=== PATIENT | male | born 1970 | race Two or more races ===

== ENCOUNTER 2018-06-07 10:04 | Inpatient (IN) | payer MEDICAID ==
[~2018-06-07] VITALS: Ht 182.9 cm; Wt 106.1 kg
[2018-06-07] VITALS (12 sets, daily range): BP systolic 103–120; BP diastolic 48–60
--- NOTE | 2018-06-07 10:05 | NUR ---
ZOIE FROM [facility],BLOOD SUGAR 21,WENT EP TO 193 AFTER D10, SHORT OF BREATH , ATTACHED TO THE MONITOR , VSS , WILL CONTINUE TO MONITOR
[2018-06-07] MEDS ORDERED: BISA10SU8 RC (10:15)
[2018-06-07] MEDS ORDERED: MULT-659 PO (10:15)
[2018-06-07] MEDS ORDERED: DULO60CA45 PO (10:15)
[2018-06-07] MEDS ORDERED: HYDR-552 PO (10:15)
[2018-06-07] MEDS ORDERED: BLOO-668 IN (10:15)
[2018-06-07] MEDS ORDERED: ZINC220C8 PO (10:15)
[2018-06-07] MEDS ORDERED: ASCO500T9 PO (10:15)
[2018-06-07] MEDS ORDERED: NA P133E RC (10:15)
[2018-06-07] MEDS ORDERED: HYDR-4076 PO (10:15)
[2018-06-07] MEDS ORDERED: ACET-868 PO (10:15)
[2018-06-07] MEDS ORDERED: INSU100V7 SQ (10:15)
[2018-06-07] MEDS ORDERED: MAGN400O6 PO (10:15)
[2018-06-07] MEDS ORDERED: VANC1.5P9 IV (10:16)
--- NOTE | 2018-06-07 10:38 | NUR ---
CALLED FOR ICU BED
--- NOTE | 2018-06-07 10:46 | NUR ---
GOT ICU BED 255 ROQUE IS THE NURSE
[2018-06-07 10:47] LABS: ABG BASE EXCESS -4.6 mmol/L; ABG OXYGEN SATURATION 96.1 % (92.0-98.5); ABG PCO2 32.1 mmHg (35.0-45.0); ABG PH 7.397 (7.350-7.450); ABG PO2 83.9 mmHg (75.0-100.0); AaDO2 77.9 mmHg; MetHb 0.4 % (0.0-1.5); O2Hb 94.8 % (94.0-97.0); SITE, ABG Left Radial; VENT MODE, BG Nasal Cannula
[2018-06-07] MEDS ORDERED: Sodium Chloride 154 MEQ in IV 10% DEXTROSE 1,000 ML IV ONE (11:00)
[2018-06-07] MEDS ORDERED: VANCOMYCIN 1 GM in IV D5W 250 ML IV ONE (11:00)
[2018-06-07] MEDS ORDERED: LEVOFLOXACIN 750 MG /D5W 150ML PIGGYBACK IV ONE (11:00)
[2018-06-07] MEDS ORDERED: PIPERACILLIN /TAZOBACTAM 3.375 G in IV D5W 50 ML IV ONE (11:00)
[2018-06-07 11:06] LABS: BASOPHILS # (AUTO) 0.2 /CMM (0.0-0.2); BASOPHILS % (AUTO) 3.9 % (0.0-2.0); EOSINOPHILS % (AUTO) 0.6 % (0.0-6.0); HEMATOCRIT 37 % (39-51); HEMOGLOBIN 11.3 g/dL (13.5-17.5); LYMPHOCYTES # (AUTO) 0.5 /CMM (0.8-4.8); LYMPHOCYTES % (AUTO) 7.4 % (20.0-44.0); MEAN CORPUSCULAR HEMOGLOBIN 25 PG (26.0-33.0); MEAN CORPUSCULAR HGB CONC 31 g/dl (31.0-36.0); MEAN CORPUSCULAR VOLUME 81 fL (80-96); MONOCYTES # (AUTO) 0.4 /CMM (0.1-1.30); MONOCYTES % (AUTO) 5.6 % (2.0-12.0); NEUTROPHILS # (AUTO) 5.2 /CMM (1.8-8.9); NEUTROPHILS % (AUTO) 82.5 % (43.0-81.0); PLATELET COUNT (AUTO) 148 /CMM (150-450); RDW COEFFICIENT OF VARIATION 20.4 (11.5-15.0); RED BLOOD CELL COUNT(AUTO) 4.56 MIL/uL (4.5-6.0); WHITE BLOOD COUNT (AUTO) 6.3 K/uL (4.3-11.0)
[2018-06-07 11:14] LABS: CALCIUM, SERUM 8.3 mg/dL (8.5-10.1); CREATININE 2.3 mg/dL (0.6-1.3); POTASSIUM 4.3 mmol/L (3.5-5.1)
[2018-06-07 11:17] LABS: INR 1.37 (0.85-1.15)
[2018-06-07 11:22] LABS: TROPONIN I 0.021 ng/mL (0.00-0.056)
[2018-06-07 11:25] LABS: ALBUMIN 1.9 g/dL (3.4-5.0); BILIRUBIN,DIRECT 0.4 mg/dL (0.0-0.2); BILIRUBIN,TOTAL 0.7 mg/dL (0.2-1.0)
--- NOTE | 2018-06-07 11:27 | NUR ---
RIGHT UPPER ARM PICC LINE DOUBLE LUMEN PLACED , PER PICC NURSE , OK TO USE .
[2018-06-07] MEDS ORDERED: IV NS 0.9% 1,000 ML BAG IV ONE (11:30)
--- NOTE | 2018-06-07 12:22 | NUR ---
REPORT GIVEN TO DILLON FOR CONTINUITY OF CARE , ALL QUESTIONS ANSWERED .
--- NOTE | 2018-06-07 12:58 | NUR ---
TRANSFERED PT VIA ACLS PROTOCOL TO ROOM 255 , S .
--- NOTE | 2018-06-07 13:00 | NUR ---
RN INITIAL NOTES RECEIVED PT FROM ER VIA AMBER. PT AWAKE, A/OX2-3. ON 02 SAT 3LPM VIA NM. NO RESPIRATORY DISTRESS NOTED. NO SOB NOTED. PLACED COMFORTABLY TO BED. JOHANA PICC IN PLACE. IVF INFUSING. BODY ASSESSMENT DONE, PICTURES PLACED IN THE CHART. MULTIPLE WOUNDS COVERED WITH DRY DRESSING. PT FOR WOUND CONSULT. PT COMFORTABLE. LLE ELEVATED. CALL LIGHT WITHIN REACH. DR WALDEMAR DAMON AWARE OF ADMISSION, AWAITING FOR ORDERS. WILL MONITOR
[2018-06-07] MEDS ORDERED: IV NS 0.9% 1,000 ML IV PRN (13:46)
[2018-06-07] MEDS ORDERED: ONDANSETRON HCL/PF 4 MG/2 ML VIAL IVP PRN (14:00)
[2018-06-07] MEDS ORDERED: ACETAMINOPHEN 650 MG/SUPP.RECT RC PRN (14:00)
[2018-06-07] MEDS ORDERED: FUROSEMIDE 40 MG/4 ML VIAL IV ONE (14:00)
[2018-06-07] MEDS ORDERED: FEE PK DOSING 1 MIN EA MC ONE (14:06)
--- NOTE | 2018-06-07 14:10 | NUR ---
RN NOTES SEEN AND EXAMINED BY DR PRESTON. AWARE OF PT'S H&P. REVIEWED LAB VALUES AND IMAGING STUDIES. ORDER MADE, NOTED AND CARRIED OUT. WILL MONITOR
[2018-06-07] MEDS ORDERED: INSULIN REGULAR, HUMAN 100 UNIT/ML 3 ML VIAL SQ PRN (14:30)
[2018-06-07] MEDS ORDERED: ENOXAPARIN SODIUM 40 MG/0.4 ML DISP.SYRIN SQ SCH (15:00)
--- NOTE | 2018-06-07 15:08 | NUR ---
INITIAL ECHO SHOWED EF 55-60%~, PRESENCE OF PLEURAL EFFUSION AND AORTIC VALVE VEGETATION. ADVISED ANGEL CARRANZA AND DR. HEART OF [facility]. RESULTS.
[2018-06-07] MEDS: ENOXAPARIN SODIUM 30 MG/0.3 ML DISP.SYRIN SQ SCH (15:41)
[2018-06-07] MEDS ORDERED: IV 10% DEXTROSE 1,000 ML IV PRN (16:00)
[2018-06-07] MEDS: PIPERACILLIN /TAZOBACTAM 3.375 G in IV D5W 50 ML IV SCH (17:06)
[2018-06-07] MEDS: BLOOD SUGAR DIAGNOSTIC 1 EACH STRIP IN SCH (17:12)
[2018-06-07] MEDS: DEXTROSE 50%-WATER 50 ML DISP.SYRIN IV PRN (17:13)
--- NOTE | 2018-06-07 17:30 | NUR ---
RN NOTES SEEN AND EXAMINED BY DR WALDEMAR DAMON. PT AWAKE, A/OX2-3. MD AWARE OF LAB VALUES AND CXR RESULT. MD AWARE OF LATEST BLOOD SUGAR, 55. D50 GIVEN ORDERED. PT ON D10 AT 75ML/HR. WILL RECHECK BLOOD SUGAR IN 15MINS. MD ORDERED DECREASE IVF TO 50ML/HR AND CHECK BLOOD SUGAR ORDERED, GIVE D50 IVP IF NEEDED. WILL MONITOR.
--- NOTE | 2018-06-07 18:41 | NUR ---
RN CLOSING NOTES PT REMAINS STABLE. LATEST BLOOD SUGAR, 96. TOLERATING IVF. KEPT PT CLEAN AND DRY. REPOSITIONED. CALL LIGHT WITHIN REACH. WILL ENDORSE FOR CONTINUITY OF CARE.
--- NOTE | 2018-06-07 19:00 | NUR ---
LINER MAN NOTES Received patient slightly lethargic but easily awakens,follows simple commands but very weak, all extremities extremely swollen/cellulitis ,barely able to move due to cellulitis.Not in any acute distress but breathing shallow with O2 nasal cannula @ 2 L/min.PICC line via JOHANA with Ivfluid D10 W @ 50 ml/hr.Will closely monitor finger stick/blood sugar and give prn D50 if needed as ordered.
[2018-06-07] MEDS: Z GUARD REMEDY 2 OZ OINT TP SCH (21:00)
[2018-06-07] MEDS: Z GUARD REMEDY 2 OZ OINT TP PRN ×2 (22:18→22:20)
[2018-06-08] VITALS (31 sets, daily range): BP systolic 97–112; BP diastolic 38–55
--- NOTE | 2018-06-08 | NUR ---
LICENSED THERAPIST NOTES Status unchanged,asleep most of the time but arousable,still very weak.Fs=43 ,D50wW IVP 1 amp. given.
[2018-06-08] MEDS: DEXTROSE 50%-WATER 50 ML DISP.SYRIN IV PRN (00:17)
[2018-06-08] MEDS: PIPERACILLIN /TAZOBACTAM 3.375 G in IV D5W 50 ML IV SCH ×5 (00:17→23:55)
[2018-06-08] MEDS: BLOOD SUGAR DIAGNOSTIC 1 EACH STRIP IN SCH ×5 (00:18→23:54)
[2018-06-08] MEDS: IV 10% DEXTROSE 1,000 ML IV PRN ×2 (01:36→17:43)
[2018-06-08] MEDS: MORPHINE SULFATE INJ 2 MG/ML DISP.SYRIN IV PRN ×3 (03:30→17:02)
--- NOTE | 2018-06-08 04:05 | NUR ---
INFORMATION CLERK AUTOMOBILE CLUB NOTES Remains stable,not in any distress,seems more responsive and more alert,.AM care done,c/o generalized pain when moving and turning (prn Morphine given ).
[2018-06-08] MEDS: VANCOMYCIN 1.25 GM in IV D5W 500 ML IV SCH ×2 (04:53→23:37)
[2018-06-08 05:02] LABS: THYROID STIMULATING HORMONE 7.948 uIU/mL (0.358-3.74)
[2018-06-08 05:03] LABS: HEMATOCRIT 34 % (39-51); HEMOGLOBIN 10.4 g/dL (13.5-17.5); MEAN CORPUSCULAR HEMOGLOBIN 26 PG (26.0-33.0); MEAN CORPUSCULAR HGB CONC 31 g/dl (31.0-36.0); MEAN CORPUSCULAR VOLUME 83 fL (80-96); PLATELET COUNT (AUTO) 92 /CMM (150-450); RDW COEFFICIENT OF VARIATION 21.6 (11.5-15.0); RED BLOOD CELL COUNT(AUTO) 4.02 MIL/uL (4.5-6.0); WHITE BLOOD COUNT (AUTO) 6.9 K/uL (4.3-11.0)
[2018-06-08 05:21] LABS: LYMPHOCYTES % (MANUAL) 9 % (16-48); MONOCYTES % (MANUAL) 4 % (0-11.0); NEUTROPHILS % (MANUAL) 87 (42-76)
[2018-06-08 05:22] LABS: CALCIUM, SERUM 7.8 mg/dL (8.5-10.1); CREATININE 2.1 mg/dL (0.6-1.3); MAGNESIUM 2.4 mg/dL (1.8-2.4); PHOSPHORUS 4.5 mg/dL (2.5-4.9); POTASSIUM 4.5 mmol/L (3.5-5.1)
--- NOTE | 2018-06-08 07:10 | NUR ---
RN INITIAL NOTES RECEIVED PT ASLEEP, EASY TO AROUSE. ON 02 AT 3LPM VIA NC. HOB ELEVATED. NO RESPIRATORY DISTRESS NOTED. NO SOB NOTED. NO SIGNS OF PAIN NOTED. JOHANA PICC IN PLACE. IVF INFUSING. DRESSING NOTES ON THAD AND LEFT LOWER LEG, CLEAN AND DRY. PT REPOSITIONED. CALL LIGHT WITHIN REACH. WILL MONITOR.
--- NOTE | 2018-06-08 07:15 | NUR ---
LIVESTOCK BRANDS INSPECTOR NOTES Report given to Serenity ORTIZ.Patient stable.
[2018-06-08] MEDS: PANTOPRAZOLE 40 MG VIAL IV SCH (08:17)
[2018-06-08] MEDS: Z GUARD REMEDY 2 OZ OINT TP SCH ×2 (08:18→20:06)
[2018-06-08 10:34] LABS: CALCIUM, SERUM 7.5 mg/dL (8.5-10.1); CREATININE 2.1 mg/dL (0.6-1.3); POTASSIUM 4.5 mmol/L (3.5-5.1)
--- NOTE | 2018-06-08 10:50 | NUR ---
RN NOTES SEEN AND EXAMINED BY DR WALDEMAR DAMON. PT MORE AWAKE, A/O. MD AWARE OF LAB VALUES: WBC 6.9, HGB 10.4, HCT 34, PLATELET 92, SODIUM 135, POTASSIUM 4.5, BUN 74, CREA 2.1, BNP 19378, TSH 7.948. MD ALSO AWARE OF ECHO AND CXR RESULT. MD AWARE THAT PT HAS D10 AT 50ML/HR INFUSING, BLOOD SUGAR REMAINS ON THE LOW SIDE. WILL CLOSELY MONITOR
[2018-06-08 11:41] LABS: AMYLASE 42 U/L (25-115); LIPASE 48 U/L (73-393)
[2018-06-08] MEDS: FUROSEMIDE 40 MG/4 ML VIAL IV SCH ×2 (12:58→18:14)
--- NOTE | 2018-06-08 13:00 | NUR ---
RN NOTES SEEN AND EXAMINED BY DR PRESTON. AWARE OR CURRENT LAB VALUES AND CXR RESULT. WILL CONTINUE TO MONITOR.
--- NOTE | 2018-06-08 18:55 | NUR ---
RN CLOSING NOTES NO SIGNIFICANT CHANGE NOTED. KEPT PT COMFORTABLE. PAIN WELL MANAGED. KEPT WOUNDS CLEAN AND DRY. REPOSITIONED Q2. ALL NEEDS ATTENDED AND MET. WILL ENDORSE FOR CONTINUITY OF CARE.
--- NOTE | 2018-06-08 20:00 | NUR ---
HEEL PACKER - NOTES - RECEIVED PT AWAKE ALERT, 02 AT 3LPM VIA NC. HOB ELEVATED. NO RESPIRATORY DISTRESS NOTED. NO SOB NOTED. NO SIGNS OF PAIN NOTED. JOHANA PICC IN PLACE. IVF INFUSING. DRESSING NOTES ON THAD AND LEFT LOWER LEG, CLEAN AND DRY. PT REPOSITIONED. CALL LIGHT WITHIN REACH. WILL MONITOR.
[2018-06-08] MEDS: ENOXAPARIN SODIUM 30 MG/0.3 ML DISP.SYRIN SQ SCH (20:05)
[2018-06-09] VITALS (20 sets, daily range): BP systolic 90–107; BP diastolic 27–58
[2018-06-09] MEDS: MORPHINE SULFATE INJ 2 MG/ML DISP.SYRIN IV PRN ×3 (02:53→22:41)
[2018-06-09 04:40] LABS: HEMATOCRIT 34 % (39-51); HEMOGLOBIN 10.5 g/dL (13.5-17.5); MEAN CORPUSCULAR HEMOGLOBIN 26 PG (26.0-33.0); MEAN CORPUSCULAR HGB CONC 31 g/dl (31.0-36.0); MEAN CORPUSCULAR VOLUME 84 fL (80-96); PLATELET COUNT (AUTO) 90 /CMM (150-450); RDW COEFFICIENT OF VARIATION 21.8 (11.5-15.0); RED BLOOD CELL COUNT(AUTO) 4.01 MIL/uL (4.5-6.0); WHITE BLOOD COUNT (AUTO) 7.4 K/uL (4.3-11.0)
[2018-06-09 04:57] LABS: CALCIUM, SERUM 7.6 mg/dL (8.5-10.1); CREATININE 2.3 mg/dL (0.6-1.3); POTASSIUM 4.5 mmol/L (3.5-5.1)
[2018-06-09 05:01] LABS: BAND % (MANUAL) 3 % (0.0-5.0); EOSINOPHILS % (MANUAL) 1 % (0-4); LYMPHOCYTES % (MANUAL) 12 % (16-48); MONOCYTES % (MANUAL) 3 % (0-11.0); NEUTROPHILS % (MANUAL) 81 (42-76)
[2018-06-09] MEDS: BLOOD SUGAR DIAGNOSTIC 1 EACH STRIP IN SCH ×4 (05:14→23:45)
[2018-06-09] MEDS: PIPERACILLIN /TAZOBACTAM 3.375 G in IV D5W 50 ML IV SCH ×4 (05:14→23:44)
--- NOTE | 2018-06-09 07:15 | NUR ---
RN INITIAL NOTES RECEIVED PT AWAKE, A/OX2-3. ON 02 AT 3LPM VIA NC. HOB ELEVATED. NO RESPIRATORY DISTRESS NOTED. NO SOB NOTED. NO SIGNS OF PAIN NOTED. JOHANA PICC IN PLACE. IVF INFUSING. DRESSING NOTES ON THAD AND LEFT LOWER LEG, CLEAN AND DRY. PT REPOSITIONED. CALL LIGHT WITHIN REACH. WILL MONITOR.
[2018-06-09] MEDS: PANTOPRAZOLE 40 MG VIAL IV SCH (08:07)
[2018-06-09] MEDS: Z GUARD REMEDY 2 OZ OINT TP SCH ×2 (08:07→20:09)
--- NOTE | 2018-06-09 10:20 | NUR ---
RN NOTES SEEN AND EXAMINED BY DR PRESTON. PT ON AT 3LPM VIA OR. NO RESPIRATORY DISTRESS NOTED. NO SOB NOTED. MD AWARE OF CURRENT MELISSA VALUES, CXR AND US ABDOMEN. MD ORDERED US GUIDED RIGHT THORACENTESIS. WILL SEND SPECIMEN TO LAB FOR CYTOLOGY. WILL CONTINUE TO MONITOR
[2018-06-09] MEDS ORDERED: LIDOCAINE HCL/PF 1% 30 ML SDV ONE (10:49)
--- NOTE | 2018-06-09 11:14 | NUR ---
WOUND CARE CONSULT: PT FOLLOWED BY PLASTIC SURGERY TEAM. DEFER TO SURGICAL TEAM FOR WOUND TREATMENT PLAN. PT ON DNAIELLE ISOFLEX LOW AIRLOSS BED. ALL SKIN PROTECTION AND PRESSURE ULCER PREVENTION MEASURES IN PLACE AND DISCUSSED WITH NURSING STAFF. CURRENT CHANO SCORE IS 12.
--- NOTE | 2018-06-09 11:20 | NUR ---
RN NOTES SEEN AND EXAMINED BY DR WALDEMAR DAMON. AWARE OF CURRENT LAB VALUES: WBC 7.4, HGB 10.5, HCT 34, PLATELET 90. SODIUM 130, POTASSIUM 4.5, BUN70M CREA 2.3. MD ALSO AWARE OF CXR AND US ABDOMEN RESULT. PT FOR US GUIDED THORACENTESIS (RIGHT). WILL CLOSELY MONITOR
--- NOTE | 2018-06-09 11:50 | NUR ---
RN NOTES PT SP US GUIDED THORACENTESIS (RIGHT). REMOVED 2L. TOLERATED PROCEDURE WELL. NO SOB NOTED. VS WNL. SPECIMEN SENT TO LABS FOR CYTOLOGY. WILL CLOSELY MONITOR.
[2018-06-09] MEDS: IV 10% DEXTROSE 1,000 ML IV PRN (12:43)
--- NOTE | 2018-06-09 13:04 | NUR ---
RN NOTES 1030 SEEN AND EXAMINED BY DR HEART. AWARE OF HX, CURRENT MEDICATION AND LATEST LAB VALUES AND IMAGING STUDIES. MD AWARE OF VEGETATION SEEN ON ECHO STUDIES. NO ORDER MADE AT THIS TIME. WILL MONITOR. 1100 SEEN AND EXAMINED BY DR ULLOA. MS AWARE OF HX, CURRENT LAB VALUES AND IMAGING STUDIES. PT ON IV ATB. BLOOD CX, NEGATIVE. PT AFEBRILE. WILL MONITOR.
--- NOTE | 2018-06-09 15:00 | NUR ---
RN NOTES SEEN AND EXAMINED BY DR FANG. ASSESSES LEFT LOWER LEG CELLULITIS/WOUND. MD DISCUSSED PLAN OF CARE WITH PT. CONSENT FOR DEBRIDEMENT OBTAINED BY MD AFTER EXPLANATION OF BEHZAD AND BENEFITS. PT SP LEFT LOWER LEG DEBRIDEMENT. TX WILL FOLLOW ORDERED. WILL CONTINUE TO MONITOR
[2018-06-09] MEDS ORDERED: SILVER SULFADIAZINE CREAM 25 GM TUBE TP PRN (15:30)
[2018-06-09] MEDS: FUROSEMIDE 40 MG/4 ML VIAL IV SCH ×2 (15:31→17:01)
[2018-06-09] MEDS: CADEXOMER IODINE 40 GM TUBE TP SCH (15:31)
[2018-06-09] MEDS: ALBUMIN 25% 25 GM in PREMIX 1 EA IV SCH ×2 (15:50→20:08)
[2018-06-09] MEDS: VANCOMYCIN 1.25 GM in IV D5W 500 ML IV SCH (17:00)
--- NOTE | 2018-06-09 18:30 | NUR ---
RN NOTE RECEIVED REPORT FOR DATA COMMUNICATIONS ANALYSTANGEL BLANCO. RECEIVED PATIENT AWAKE ALERT AND ORIENTED X2. HE IS ABLE TO VERBALIZE NEEDS. BREATHING EVEN UNLABORED WITH NO DISTRESS NOTED. ON CONTINUOUS O2 2L VIA NASAL CANULA. HOB ELEVATED FOR COMFORT. DENIES ANY PAIN AT THIS TIME. JOHANA PICC INTACT AND PATENT WITH ONGOING FLUIDS ORDERED. ALL SAFETY MEASURES DONE. BED LOW AND LOCKED POSITION. WILL CONTINUE TO MONITOR PATIENT CLOSELY. WILL ENDORSE TO NEXT SHIFT TO CONTINUE CONTINUITY OF CARE.
--- NOTE | 2018-06-09 18:34 | NUR ---
RN NOTES PT TRANSFERRED TO [facility] ROOM 106. PT A/OX2-3. ON 02 VIA NC AT 3LPM. NO SOB NOTED. NO RESPIRATORY DISTRESS NOTED. JOHANA PICC LINE IN PLACE. TX PROVIDED, DRESSING CLEAN AND DRY. REPORT GIVEN TO ANGEL PURVIS. TOOK OVER PT'S CARE.
--- NOTE | 2018-06-09 19:00 | NUR ---
RN INITIAL NOTES RECEIVED PT SLEEPING ON BED, CURRENTLY DROWSY BUT A/O X2. ON 2L NASAL CANNULA, SATURATING WELL, NO S/S OF RESP DISTRESS. CURRENTLY SR ON THE MONITOR, HR 90'S. ON DIAPERS ONLY. RIGHT UPPER ARM PICC WITH D10 @ 50MLS/HR, FLUSHED AND PATENT, NO S/S OF INFILTRATION/INFECTION, DRESSING CDI. BED LOW AND LOCKED, SIDERAILS UP, CALL LIGHT WITHIN REACH. WILL MONITOR
[2018-06-09] MEDS: SILVER SULFADIAZINE CREAM 25 GM TUBE TP SCH (20:08)
[2018-06-09] MEDS: ENOXAPARIN SODIUM 30 MG/0.3 ML DISP.SYRIN SQ SCH (20:09)
[2018-06-10] VITALS: BP 91/34
[2018-06-10] MEDS: ALBUMIN 25% 25 GM in PREMIX 1 EA IV SCH ×2 (02:08→08:48)
[2018-06-10 04:00] VITALS: BP 95/40
[2018-06-10] MEDS: BLOOD SUGAR DIAGNOSTIC 1 EACH STRIP IN SCH ×3 (05:17→17:36)
[2018-06-10] MEDS: PIPERACILLIN /TAZOBACTAM 3.375 G in IV D5W 50 ML IV SCH ×3 (05:17→17:36)
[2018-06-10] MEDS: IV 10% DEXTROSE 1,000 ML IV PRN (05:23)
[2018-06-10] MEDS: SILVER SULFADIAZINE CREAM 25 GM TUBE TP SCH ×2 (06:03→18:24)
[2018-06-10 06:24] LABS: HEMATOCRIT 32 % (39-51); HEMOGLOBIN 10.1 g/dL (13.5-17.5); MEAN CORPUSCULAR HEMOGLOBIN 26 PG (26.0-33.0); MEAN CORPUSCULAR HGB CONC 31 g/dl (31.0-36.0); MEAN CORPUSCULAR VOLUME 83 fL (80-96); PLATELET COUNT (AUTO) 70 /CMM (150-450); RDW COEFFICIENT OF VARIATION 21.8 (11.5-15.0); RED BLOOD CELL COUNT(AUTO) 3.89 MIL/uL (4.5-6.0); WHITE BLOOD COUNT (AUTO) 5.7 K/uL (4.3-11.0)
[2018-06-10 06:40] LABS: CALCIUM, SERUM 7.8 mg/dL (8.5-10.1); CREATININE 2.3 mg/dL (0.6-1.3); MAGNESIUM 2.4 mg/dL (1.8-2.4); PHOSPHORUS 4.5 mg/dL (2.5-4.9); POTASSIUM 4.3 mmol/L (3.5-5.1)
--- NOTE | 2018-06-10 06:40 | NUR ---
RN CLOSING NOTES PT REMAINS STABLE OF THE MOMENT. ALL DUE MEDS GIVEN, AM CARE PROVIDED. WILL ENDORSE CATIE TO AM RN
--- NOTE | 2018-06-10 07:00 | NUR ---
RN NOTES RECEIVED PT ON BED, DROWSY BUT A/O X2. RESPIRATION EVEN AND UNLABORED, ON 2L O2 N/C , NO S/S OF RESP DISTRESS. ON TELE SR HR IN 90'S , RIGHT UPPER ARM PICC SITE CLEAN, DRY AND INTACT, WITH D10 @ 50MLS/HR RUNNING , SR UP x3, CALL LIGHT WITHIN EASY REACH , BED LOCKED AND IN LOWEST POSITION , CONTINUE TO MONITOR .
[2018-06-10 08:00] VITALS: BP 90/41
[2018-06-10 08:09] LABS: LYMPHOCYTES % (MANUAL) 12 % (16-48); MONOCYTES % (MANUAL) 3 % (0-11.0); NEUTROPHILS % (MANUAL) 85 (42-76)
[2018-06-10] MEDS: PANTOPRAZOLE 40 MG VIAL IV SCH (08:47)
[2018-06-10] MEDS: CADEXOMER IODINE 40 GM TUBE TP SCH (08:48)
[2018-06-10] MEDS: Z GUARD REMEDY 2 OZ OINT TP SCH ×2 (08:50→20:42)
--- NOTE | 2018-06-10 10:08 | NUR ---
RN NOTES LEFT A MESSAGE FOR PT'S FATHER REGARDING CONSENT FOR THORACENTESIS OF LEFT LUNG.
[2018-06-10 12:00] VITALS: BP_SYST 148; BP_DIAS 22; BP_DIAS 45
--- NOTE | 2018-06-10 14:00 | NUR ---
RN NOTES REPORT GIVEN TO LEIGHTON ORTIZ FOR CONTINUITY OF CARE .
--- NOTE | 2018-06-10 14:00 | NUR ---
RN NOTES RECEIVED REPORT FROM ANGEL PRUITT FOR CATIE RECEIVED PT IN BED, ULTRASOUND GUIDED LEFT THORACENTESIS ONGOING. ALERT AND VERBALLY RESPONSIVE. ON 2L O2 VIA NC, TOLERATING WELL, NO SOB NOTED. WITH ONGOING D10W AT 50 ML/HR INFUSING WELL ON JOHANA PICC LINE, PICC LINE DRESSING INTACT, WITH NO SIGNS OF INFECTION NOTED. SAFETY MEASURES IN PLACED. PER ENDORSEMENT, WOUND TREATMENT TO BE DONE. CALL LIGHT WITHIN REACH. WILL CONT TO MONITOR Addendum: 06/10/18 at 1653 by STEPHANIE YEN RN SR HR 80S ON TELEMONITOR
[2018-06-10] MEDS: MORPHINE SULFATE INJ 2 MG/ML DISP.SYRIN IV PRN (14:31)
[2018-06-10 15:41] LABS: APPEARANCE,URINE CLEAR (CLEAR); BILIRUBIN,URINE NEGATIVE (NEGATIVE); BLOOD, URINE NEGATIVE Ery/uL (NEGATIVE); COLOR,URINE YELLOW (YELLOW); KETONES,URINE NEGATIVE (NEGATIVE); LEUKOCYTE ESTERASE ,URINE NEGATIVE (NEGATIVE); NITRITE, URINE NEGATIVE (NEGATIVE); PROTEIN,URINE NEGATIVE (NEGATIVE); UGLUCOSE NEGATIVE (NEGATIVE); UROBILINOGEN,URINE 0.2 EU/dL (0.2)
[2018-06-10 16:00] VITALS: BP 130/38
[2018-06-10 16:01] LABS: CREATININE, URINE 37.4 MG/DL (30.0-125.0)
[2018-06-10 17:14] LABS: EOSINOPHIL,URINE None Seen
--- NOTE | 2018-06-10 19:07 | NUR ---
TELE/RN CLOSING NOTES PT IN STABLE CONDITION. NO ACUTE DISTRESS NOTED. SAFETY MEASURES OBSERVED AT ALL TIMES. ALL NEEDS ANTICIPATED. ENDORSED TO PM SHIFT NURSE FOR CATIE
--- NOTE | 2018-06-10 19:59 | NUR ---
RN NOTE CALLED DOCTOR SHAAN AGUSTIN REGARDING LOW BLOOD PRESSURE 84/59, AND RECTAL TEMPERATURE 96.0, ORDER OF IV NS 0.9% BOLUS 500ML AND BEAR HUGGER IS GIVEN AND CARRIED OUT, WILL CONTINUE TO MONITOR PATIENT
[2018-06-10 20:00] VITALS: BP 94/39
[2018-06-10] MEDS ORDERED: IV NS 0.9% 500 ML IV ONE (20:30)
[2018-06-10] MEDS: ENOXAPARIN SODIUM 30 MG/0.3 ML DISP.SYRIN SQ SCH (21:00)
--- NOTE | 2018-06-10 21:02 | NUR ---
RN NOTE PATIENT HAS LOVENOX SCHEDULED AT 2100, NOTIFIED MICHAEL AGUSTIN DNP REGARDING PLATELETS OF 70, APTT 37, PER MICHAEL Cano DNP HOLD ONE DOSE FOR NOW, PER MICHAEL AGUSTIN HE WILL COME AND SEE PATIENT LATER TONGONZALEZ
--- NOTE | 2018-06-10 22:23 | NUR ---
RN NOTE ELLEN AGUSTIN DNP IS BY BEDSIDE
--- NOTE | 2018-06-10 23:00 | NUR ---
RN NOTE SPOKE TO TIERRA FROM LABORATORY, PLATELETS WILL BE READY WITHIN 4-5 HOURS
--- NOTE | 2018-06-10 23:58 | NUR ---
RN NOTE PATIENT REQUESTED MORPHINE IV, BP 94/44, EXPLAINED TO PATIENT THAT MEDICATION CAN DECREASE BP, OFFERED TYLENOL SUPP., PATIENT REFUSED, NOTIFIED MICHAEL AGUSTIN DNP, PER MICHAEL AGUSTIN DNP HE WILL PUT AN ORDER, AWAITING FOR NEW ORDER
[2018-06-11] VITALS (12 sets, daily range): BP systolic 93–131; BP diastolic 38–58
[2018-06-11] MEDS: PIPERACILLIN /TAZOBACTAM 3.375 G in IV D5W 50 ML IV SCH ×4 (00:09→17:04)
[2018-06-11] MEDS: BLOOD SUGAR DIAGNOSTIC 1 EACH STRIP IN SCH ×4 (00:13→17:14)
--- NOTE | 2018-06-11 01:00 | NUR ---
RN NOTE CALLED JJ AGUSTIN DNP, REGARDING PAIN MEDICATION, AWAITING FOR CALL BACK, CHARGE NURSE IS AWARE
--- NOTE | 2018-06-11 04:20 | NUR ---
RN NOTE INITIATED PLATELETS TRANSFUSION, TOLERATES WELL, NO S/S OF ADVERSE REACTION NOTED, WILL CONTINUE TO MONITOR
--- NOTE | 2018-06-11 04:30 | NUR ---
RN NOTE RECEIVED CALL BACK FROM SHAAN AGUSTIN DNP, NEW ORDER OF TYLENOL 975 MG SUPP. GIVEN AND CARRIED OUT, JJ AGUSTIN DNP STATED" I CAN ONLY ORDER TYLENOL RECTAL, EVERYTHING ELSE WILL MAKE BLOOD PRESSURE WORSE". Addendum: 06/11/18 at 0503 by JOSAFAT COYNE RN TALKED TO THE PATIENT AND PATIENT AGREED THIS TIME
[2018-06-11] MEDS ORDERED: ACETAMINOPHEN 650 MG/SUPP.RECT RC ONE (05:00)
--- NOTE | 2018-06-11 05:15 | NUR ---
RN NOTE PLATELETS TRANSFUSION ENDED, PATIENT TOLERATED PROCEDURE WELL, NO ADVERSE REACTION NOTED
[2018-06-11] MEDS: IV 10% DEXTROSE 1,000 ML IV PRN (05:24)
[2018-06-11 06:56] LABS: CALCIUM, SERUM 7.7 mg/dL (8.5-10.1); CREATININE 2.3 mg/dL (0.6-1.3); POTASSIUM 4.3 mmol/L (3.5-5.1)
--- NOTE | 2018-06-11 07:30 | NUR ---
CNC MANUFACTURING ENGINEER INITIAL NOTES RECEIVED PATIENT IN BED, NO SIGNS OF DISTRESS, AOX2, ON TELE MONITORING 90S SR, ON 2L NASAL CANNULA SATURATING 99% O2, IN DIAPER, CURRENTLY NPO, IV JOHANA PICC LINE D10W @ 50 ML/HR, BED IN LOW AND LOCKED POSITION, CALL LIGHT WITHIN REACH, WILL CONTINUE TO MONITOR.
[2018-06-11] MEDS: PANTOPRAZOLE 40 MG VIAL IV SCH (09:36)
[2018-06-11] MEDS: SILVER SULFADIAZINE CREAM 25 GM TUBE TP SCH (09:38)
[2018-06-11] MEDS: Z GUARD REMEDY 2 OZ OINT TP SCH ×2 (09:38→20:50)
[2018-06-11] MEDS: CADEXOMER IODINE 40 GM TUBE TP SCH (09:39)
[2018-06-11] MEDS: MORPHINE SULFATE INJ 2 MG/ML DISP.SYRIN IV PRN ×2 (17:04→23:05)
--- NOTE | 2018-06-11 19:00 | NUR ---
HAY RAKE OPERATOR END NOTES PATIENT RESTING IN BED, ALL NEEDS ADDRESSED, PAIN MEDICATIONS GIVEN, TURNED AND REPOSITIONED, WILL ENDORSE TO ELECTRICAL MANAGER FOR CONTINUITY OF CARE.
[2018-06-11] MEDS: ENOXAPARIN SODIUM 30 MG/0.3 ML DISP.SYRIN SQ SCH (20:49)
[2018-06-12] VITALS (7 sets, daily range): BP systolic 92–102; BP diastolic 34–56
[2018-06-12] MEDS: PIPERACILLIN /TAZOBACTAM 3.375 G in IV D5W 50 ML IV SCH ×2 (00:30→05:25)
[2018-06-12] MEDS: BLOOD SUGAR DIAGNOSTIC 1 EACH STRIP IN SCH ×5 (00:30→23:22)
[2018-06-12] MEDS: IV 10% DEXTROSE 1,000 ML IV PRN (05:25)
[2018-06-12 06:28] LABS: CALCIUM, SERUM 7.6 mg/dL (8.5-10.1); CREATININE 2.4 mg/dL (0.6-1.3); POTASSIUM 4.1 mmol/L (3.5-5.1)
[2018-06-12] MEDS: SILVER SULFADIAZINE CREAM 25 GM TUBE TP SCH ×3 (06:56→19:08)
--- NOTE | 2018-06-12 07:05 | NUR ---
HABILITATION SPECIALIST NOTES PATIENT RESTED WELL AT NIGHT, ALL NEEDS ADDRESSED, PAIN IS WELL CONTROLLED WITH PAIN MEDICATION, TURNED AND REPOSITIONED,WOUND CARE PROVIDED ORDERED, WILL ENDORSE TO AM SHIFT FOR CONTINUITY OF CARE.
[2018-06-12] MEDS: PANTOPRAZOLE 40 MG VIAL IV SCH (10:02)
[2018-06-12] MEDS: Z GUARD REMEDY 2 OZ OINT TP SCH ×2 (10:03→21:26)
[2018-06-12] MEDS: CADEXOMER IODINE 40 GM TUBE TP SCH (10:04)
[2018-06-12] MEDS: GLUCERNA SHAKE 237 ML CAN PO SCH ×2 (12:00→17:00)
[2018-06-12] MEDS: MORPHINE SULFATE INJ 2 MG/ML DISP.SYRIN IV PRN ×2 (12:45→18:45)
--- NOTE | 2018-06-12 17:48 | NUR ---
RN NOTE PT NOTED TO HAVE NOT URINATED SINCE MORNING, BLADDER SCAN SHOWED RESIDUAL 700 ML, DR ALDRIDGE NOTIFIED, SHE ORDERED TO INSERT URIOSTEGUI CATHETER, BUT PT IS VERY SWOLLEN IN ABDOMEN, SCROTUM, LOWER BUTTOCK AND SACRUM. AND PENIS CANNOT BE PULLED OUT WITHOUT PAIN FOR THE PT. PT REFUSED WELL TO PUT URIOSTEGUI CATHETER. DR LADRIDGE NOTIFIE AGAIN, SHE ORDERED CT ABDOMEN WITH IV CONTRAST. WILL FOLLOW THROUGH.
--- NOTE | 2018-06-12 18:18 | NUR ---
CT ABD/PEL with contrast ordered, pt GFR 29, too low to give IV contrast. will need to schedule with dialysis to be done directly after scan if pt is on dialysis, otherwise unable to perform scan with contrast due to pts condition. MORE
[2018-06-12] MEDS ORDERED: LIDOCAINE 2% JEL UROJET 10 ML MM STA (20:13)
--- NOTE | 2018-06-12 20:20 | NUR ---
UPLANDS DIVISION DIRECTOR INITIAL NOTES RECEIVED PATIENT IN BED, NO SIGNS OF DISTRESS, AOX2, ON TELE MONITORING 90S SR, ON 2L NASAL CANNULA SATURATING 99% O2, IN DIAPER, CURRENTLY NPO, IV JOHANA PICC LINE D10W @ 50 ML/HR, RN GRANT ENDORSED PT BLADDER SCAN INDICATED OVER 750CC, DR ALDRIDGE AWARE ORDERED STRAIGHT CATH, PT REFUSING DUE TO PAIN , NOTIFIED DR ALDRIDGE, WITH ORDER FOR LIDOCAINE UROGET START. STILL UNSUCCESSFUL, CALLED NIKOLE EQUIPMENT STERILIZER, FOR USE OF COUDE, ANGEL CAMACHO ICU INSERTING, DR AGUSTIN AWARE, STILL NOT ABLE TO GET O/P. TP TAKEN TO CT ABD/ PELVIS, REQUESTED TECH TO NOTIFY UROLOGIST TO CHECK IF COUDE IS IN RIGHT PLACE. BED IN LOW AND LOCKED POSITION, CALL LIGHT WITHIN REACH, WILL CONTINUE TO MONITOR.
[2018-06-12] MEDS: ENOXAPARIN SODIUM 30 MG/0.3 ML DISP.SYRIN SQ SCH (21:00)
--- NOTE | 2018-06-12 21:30 | NUR ---
LOVENOX 30MG SQ HELD RISK FOR BLEED PLT COUNT LOW 70L. WILL ENDORSE TO AM SHIFT TO F/U WITH MD REGARDING ORDER
--- NOTE | 2018-06-12 23:00 | NUR ---
CALLED DR NIKOLE Lucas TO NOTIFY HIM THAT STILL NO O/P, AT THE [facility] EXPLAINED ALL EFFORTS UNDERTAKEN, SUGGESTED TO ENDORSE TO AM SHIFT TO F/U WITH DR ALDRIDGE WELL UROLOGIST, REQUESTED TO REMOVE COUDE CATH FOR NOW AND CONT TO MONITOR PT.
[2018-06-13] VITALS: BP 96/42
--- NOTE | 2018-06-13 02:48 | NUR ---
PT ENDORSED TO ANGEL BUCIO FOR CATIE, REPORT GIVEN FOR AM RN TO F/U, PT W/BLADDER RETENTION, VS STABLE AT THIS TIME NO DISTRESS C/O PAIN, ASLEEP CLOSE MONITORING CONDUCTED.
--- NOTE | 2018-06-13 03:00 | NUR ---
RN INITIAL NOTES REPORT GIVEN BY ANGEL ORTIZ, RECEIVED PATIENT IN BED, NO SIGNS OF DISTRESS, AOX2, ON TELE MONITORING SR HR 92, ON 2L NASAL CANNULA SATURATING 99% O2, IN DIAPER, PT CURRENTLY NPO, IV JOHANA PICC LINE D10W @ 50 ML/HR, REPORT GIVEN TO TWO PREVIOUS RN WAS UNABLE TO DRAIN PT BLADDER AND DR ALDRIDGE AWARE. BED IN LOW AND LOCKED POSITION, CALL LIGHT WITHIN REACH, WILL CONTINUE TO CLOSELY MONITOR PT FOR ANY SIGNIFICANT CHANGES.
[2018-06-13 04:00] VITALS: BP 92/39
[2018-06-13] MEDS: BLOOD SUGAR DIAGNOSTIC 1 EACH STRIP IN SCH ×4 (05:35→23:45)
--- NOTE | 2018-06-13 06:08 | NUR ---
RN CLOSING NOTES PATIENT RESTING IN BED, PT HAS NOT VOIDED, ALL NEEDS ADDRESSED,ALL MEDICATIONS GIVEN, TURNED AND REPOSITIONED, WILL ENDORSE TO AM SHIFT FOR CONTINUITY OF CARE.
[2018-06-13 07:53] LABS: BASOPHILS % (AUTO) 0.1 % (0.0-2.0); EOSINOPHILS % (AUTO) 0.9 % (0.0-6.0); HEMATOCRIT 33 % (39-51); HEMOGLOBIN 10.2 g/dL (13.5-17.5); LYMPHOCYTES # (AUTO) 0.6 /CMM (0.8-4.8); LYMPHOCYTES % (AUTO) 9.6 % (20.0-44.0); MEAN CORPUSCULAR HEMOGLOBIN 26 PG (26.0-33.0); MEAN CORPUSCULAR HGB CONC 31 g/dl (31.0-36.0); MEAN CORPUSCULAR VOLUME 83 fL (80-96); MONOCYTES # (AUTO) 0.4 /CMM (0.1-1.30); MONOCYTES % (AUTO) 5.3 % (2.0-12.0); NEUTROPHILS # (AUTO) 5.6 /CMM (1.8-8.9); NEUTROPHILS % (AUTO) 84.1 % (43.0-81.0); PLATELET COUNT (AUTO) 65 /CMM (150-450); RDW COEFFICIENT OF VARIATION 21.4 (11.5-15.0); RED BLOOD CELL COUNT(AUTO) 3.93 MIL/uL (4.5-6.0); WHITE BLOOD COUNT (AUTO) 6.6 K/uL (4.3-11.0)
[2018-06-13 08:00] VITALS: BP 96/46
[2018-06-13] MEDS: GLUCERNA SHAKE 237 ML CAN PO SCH ×2 (08:00→17:00)
[2018-06-13 08:07] LABS: CALCIUM, SERUM 7.6 mg/dL (8.5-10.1); CREATININE 2.4 mg/dL (0.6-1.3); MAGNESIUM 2.3 mg/dL (1.8-2.4); POTASSIUM 3.9 mmol/L (3.5-5.1)
[2018-06-13] MEDS: PANTOPRAZOLE 40 MG VIAL IV SCH (08:33)
[2018-06-13] MEDS: MORPHINE SULFATE INJ 2 MG/ML DISP.SYRIN IV PRN ×3 (08:34→17:27)
[2018-06-13] MEDS: Z GUARD REMEDY 2 OZ OINT TP SCH ×2 (08:41→22:44)
[2018-06-13] MEDS: CADEXOMER IODINE 40 GM TUBE TP SCH (08:41)
[2018-06-13] MEDS: SILVER SULFADIAZINE CREAM 25 GM TUBE TP SCH ×2 (08:41→18:22)
[2018-06-13 11:29] LABS: BAND % (MANUAL) 1 % (0.0-5.0); EOSINOPHILS % (MANUAL) 1 % (0-4); LYMPHOCYTES % (MANUAL) 7 % (16-48); MONOCYTES % (MANUAL) 6 % (0-11.0); NEUTROPHILS % (MANUAL) 85 (42-76)
[2018-06-13] MEDS ORDERED: METOLAZONE 2.5 MG TABLET PO ONE (12:30)
[2018-06-13] MEDS ORDERED: BUMETANIDE INJ 3 MG in IV NS 0.9% 48 ML IV ONE (12:30)
[2018-06-13 13:00] VITALS: BP 93/41
[2018-06-13] MEDS: IV 10% DEXTROSE 1,000 ML IV PRN (13:49)
[2018-06-13 16:00] VITALS: BP 119/44
[2018-06-13 16:56] VITALS: BP 119/44
[2018-06-14] VITALS: BP 97/44
[2018-06-14] MEDS: BLOOD SUGAR DIAGNOSTIC 1 EACH STRIP IN SCH ×4 (05:32→23:59)
[2018-06-14] MEDS: MORPHINE SULFATE INJ 2 MG/ML DISP.SYRIN IV PRN ×3 (05:37→21:59)
--- NOTE | 2018-06-14 06:15 | NUR ---
RN MS CLOSING NOTE PT AM BS 68, AOX2, REQUESTED ORANGE JUICE AND 2 JELLO'S, PT REFUSED DEXTROSE IV PUSH, CONT ON D10 IV FLUIDS, AWAKE ABLE TO MAKE NEEDS KNOWN. WILL ENDORSE TO AM RN TO CONT TO MONITOR PT. CLEAN AND DRY, WELL REPOSITIONED QS.
[2018-06-14 06:49] LABS: CALCIUM, SERUM 7.6 mg/dL (8.5-10.1); CREATININE 2.3 mg/dL (0.6-1.3); POTASSIUM 3.4 mmol/L (3.5-5.1)
[2018-06-14 07:04] LABS: MAGNESIUM 2.3 mg/dL (1.8-2.4); PHOSPHORUS 4.3 mg/dL (2.5-4.9)
--- NOTE | 2018-06-14 07:30 | NUR ---
RN NOTES RECEIVED PATIENT IN BED ALERT, AWAKE, ORIENTED X2 WITH BREATHING NORMAL, EVEN AND UNLABORED. NO SOB NOTED. NO ACUTE DISTRESS NOTED. ON 2L O2 VIA NC. TOLERATING WELL. JOHANA PICC LINE IS PATENT AND INTACT, CONT ON IVF PER ORDER. KEPT CLEAN, DRY AND COMFORTABLE. ALL NEEDS ATTENDED. CALL LIGHT WITH IN REACH. SAFETY MEASURE OBSERVED. WILL CONT TO MONITOR.
[2018-06-14 08:00] VITALS: BP 121/43
[2018-06-14] MEDS: GLUCERNA SHAKE 237 ML CAN PO SCH ×2 (09:02→17:57)
[2018-06-14] MEDS: SILVER SULFADIAZINE CREAM 25 GM TUBE TP SCH ×2 (09:02→20:40)
[2018-06-14] MEDS: PANTOPRAZOLE 40 MG VIAL IV SCH (09:02)
[2018-06-14] MEDS: Z GUARD REMEDY 2 OZ OINT TP SCH ×2 (09:03→20:40)
[2018-06-14] MEDS: CADEXOMER IODINE 40 GM TUBE TP SCH (09:03)
[2018-06-14] MEDS ORDERED: POTASSIUM CHLORIDE 10 MEQ TABLET.SA PO ONE (11:00)
[2018-06-14 16:00] VITALS: BP 99/42
--- NOTE | 2018-06-14 18:57 | NUR ---
RN NOTES PATIENT ENDORSED TO NEXT SHIFT IN STABLE CONDITION FOR CONTINUITY OF CARE. WILL CONT TO MONITOR.
--- NOTE | 2018-06-14 19:42 | NUR ---
RN MS INITIAL NOTES RECEIVED PATIENT IN BED ALERT, AWAKE, ORIENTED X2 WITH BREATHING NORMAL, EVEN AND UNLABORED. NO SOB NOTED. NO ACUTE DISTRESS NOTED. ON 2L O2 VIA NC. TOLERATING WELL. JOHANA PICC LINE IS PATENT AND INTACT, CONT ON IVF D10W@30ML/HR PER ORDER. KEPT CLEAN, DRY AND COMFORTABLE. ALL NEEDS ATTENDED. CALL LIGHT WITH IN REACH. SAFETY MEASURE OBSERVED. WILL CONT TO MONITOR.
[2018-06-14 20:00] VITALS: BP 96/45
[2018-06-14] MEDS: IV 10% DEXTROSE 1,000 ML IV PRN (21:27)
[2018-06-15] VITALS: BP 90/45
[2018-06-15] MEDS ORDERED: MICAFUNGIN SODIUM 100 MG in IV NS 0.9% 100 ML IV SCH (02:00)
[2018-06-15] MEDS ORDERED: MICAFUNGIN SODIUM 100 MG VIAL IV ONE (02:36)
[2018-06-15] MEDS: BLOOD SUGAR DIAGNOSTIC 1 EACH STRIP IN SCH ×3 (05:09→17:37)
--- NOTE | 2018-06-15 06:52 | NUR ---
RN MS CLOSING NOTE PT AM BS 77, AOX2, REQUESTED ORANGE JUICE AND 2 JELLO'S, PT REFUSED DEXTROSE IV PUSH, CONT ON D10 IV FLUIDS, AWAKE ABLE TO MAKE NEEDS KNOWN. WILL ENDORSE TO AM RN TO CONT TO MONITOR PT. CLEAN AND DRY, WELL REPOSITIONED QS.
[2018-06-15 07:18] LABS: CALCIUM, SERUM 7.9 mg/dL (8.5-10.1); CREATININE 2.3 mg/dL (0.6-1.3); MAGNESIUM 2.2 mg/dL (1.8-2.4); PHOSPHORUS 4.3 mg/dL (2.5-4.9); POTASSIUM 3.2 mmol/L (3.5-5.1)
--- NOTE | 2018-06-15 07:30 | NUR ---
HOOP RIVETER OPENING NOTE RECEIVED PATIENT THIS MORNING IN STABLE CONDITION, AOX2, RIGHT UPPER ARM PICC LINE INTACT AND INFUSING D10 AT 30ML/HR. ON OXYGEN 2LPM VIA NASAL CANNULA, NO SIGNS OF DISTRESS, LUNG SOUNDS CLEAR. PATIENT AWAKE AND ABLE TO MAKE NEEDS KNOWN. BED LOCKED AND IN LOW POSITION. WILL CONTINUE TO MONITOR.
[2018-06-15 08:00] VITALS: BP 99/44
[2018-06-15] MEDS: PANTOPRAZOLE 40 MG VIAL IV SCH (08:51)
[2018-06-15] MEDS: Z GUARD REMEDY 2 OZ OINT TP SCH ×2 (08:52→22:14)
[2018-06-15] MEDS: CADEXOMER IODINE 40 GM TUBE TP SCH (08:52)
[2018-06-15] MEDS: SILVER SULFADIAZINE CREAM 25 GM TUBE TP SCH ×2 (08:52→17:37)
[2018-06-15] MEDS: GLUCERNA SHAKE 237 ML CAN PO SCH ×2 (08:52→17:36)
[2018-06-15] MEDS: MORPHINE SULFATE INJ 2 MG/ML DISP.SYRIN IV PRN ×3 (09:00→18:29)
[2018-06-15] MEDS ORDERED: DOSE PER PHARMACY MICAFUNGIN 1 EA XX PRN (10:30)
[2018-06-15] MEDS ORDERED: POTASSIUM CHLORIDE 20 MEQ POWDER PACKET PO ONE (10:30)
[2018-06-15 16:00] VITALS: BP 123/56
--- NOTE | 2018-06-15 19:30 | NUR ---
RN MS NOTES CHANGED PATIENTS PICC LINE DRESSING, DRESSING INTACT AND CLEAN AND DRY, NO INFILTRATION NOTED, BLOOD RETURN PRESENT.
--- NOTE | 2018-06-15 19:30 | NUR ---
CHAIN HOOKER CLOSING NOTE PATIENT RESTING IN BED IN STABLE CONDITION, A&OX2-3, RIGHT UPPER ARM PICC LINE DRESSING CHANGED, D10 INFUSING AT 30ML/HR. WOUND CARE DONE, PATIENT AWAKE AND ABLE TO MAKE NEEDS KNOWN. HEAD OF BED ELEVATED, BED LOCKED AND IN LOW POSITION. CALL LIGHT WITHIN REACH, WILL ENDORSE TO NEXT SHIFT.
[2018-06-15 20:00] VITALS: BP 105/45
--- NOTE | 2018-06-15 20:03 | NUR ---
RN OPENING NOTE RECEIVED PATIENT REPORT FROM AM NURSE, PATIENT IS IN STABLE CONDITION, AOX2-3, RIGHT UPPER ARM PICC LINE INTACT AND INFUSING D10 AT 30ML/HR. ON OXYGEN 2LPM VIA NASAL CANNULA, NO SIGNS OF DISTRESS,COMPLAINS OF LOWER BACK PAIN 4/10 AT THIS TIME, LUNG SOUNDS CLEAR. PATIENT AWAKE AND ABLE TO MAKE NEEDS KNOWN. BED LOCKED AND IN LOW POSITION. WILL CONTINUE TO MONITOR.
[2018-06-16] MEDS: BLOOD SUGAR DIAGNOSTIC 1 EACH STRIP IN SCH ×4 (01:42→17:25)
[2018-06-16] MEDS: SILVER SULFADIAZINE CREAM 25 GM TUBE TP SCH ×2 (02:22→17:25)
[2018-06-16] MEDS: Z GUARD REMEDY 2 OZ OINT TP PRN (02:22)
[2018-06-16] MEDS: MORPHINE SULFATE INJ 2 MG/ML DISP.SYRIN IV PRN ×3 (02:32→12:46)
[2018-06-16 04:00] VITALS: BP 114/54
--- NOTE | 2018-06-16 06:00 | NUR ---
RN CLOSING NOTE PATIENT RESTING IN BED IN STABLE CONDITION, A&OX2-3, RIGHT UPPER ARM PICC LINE IS INTACT AND PATIENT, D10 INFUSING AT 30ML/HR. WOUND CARE DONE, PATIENT AWAKE AND ABLE TO MAKE NEEDS KNOWN. HEAD OF BED ELEVATED, BED LOCKED AND IN LOW POSITION. CALL LIGHT WITHIN REACH, WILL ENDORSE PATIENT CARE TO AM SHIFT.
--- NOTE | 2018-06-16 07:00 | NUR ---
MS RN OPENING NOTE RECEIVED PATIENT IN BED, AWAKE AND A&OX 2-3 WITH PERIODS OF CONFUSION, NO COMPLAINT OF PAIN AT THIS TIME. ON OXYGEN AT 3LPM VIA NASAL CANNULA. RIGHT UPPER ARM PICC LINE DRESSING CLEAN AND INTACT, D10W INFUSING AT 30ML/HR. ALL NEEDS MET AT THIS TIME, HEAD OF BED ELEVATED, BED LOCKED AND IN LOW POSITION. CALL LIGHT WITHIN REACH, WILL CONTINUE TO MONITOR.
[2018-06-16 08:00] VITALS: BP 108/46
[2018-06-16] MEDS: PANTOPRAZOLE 40 MG VIAL IV SCH (08:00)
[2018-06-16] MEDS: GLUCERNA SHAKE 237 ML CAN PO SCH ×2 (08:00→16:38)
[2018-06-16] MEDS: MICAFUNGIN SODIUM 100 MG in IV NS 0.9% 100 ML IV SCH (08:00)
[2018-06-16] MEDS: Z GUARD REMEDY 2 OZ OINT TP SCH ×2 (08:01→20:19)
[2018-06-16] MEDS: CADEXOMER IODINE 40 GM TUBE TP SCH (08:02)
--- NOTE | 2018-06-16 08:34 | NUR ---
WOUND CARE CONSULT WOUND CARE RECEIVED CONSULT FOR L ABDOMINAL FOLD WOUND, L ARMPIT AND R ELBOW. WOUND CARE WILL DEFER THIS CONSULT AND ANY TREATMENT PLANS TO SURGICAL TEAM WHO ARE CURRENTLY FOLLOWING. SURGICAL TEAM NOTIFIED OF THIS CONSULT TODAY. WILL SEE PRN.
[2018-06-16 10:03] LABS: EOSINOPHILS % (AUTO) 0.2 % (0.0-6.0); HEMATOCRIT 33 % (39-51); HEMOGLOBIN 10.6 g/dL (13.5-17.5); LYMPHOCYTES # (AUTO) 0.5 /CMM (0.8-4.8); LYMPHOCYTES % (AUTO) 6.4 % (20.0-44.0); MEAN CORPUSCULAR HEMOGLOBIN 26 PG (26.0-33.0); MEAN CORPUSCULAR HGB CONC 32 g/dl (31.0-36.0); MEAN CORPUSCULAR VOLUME 83 fL (80-96); MONOCYTES # (AUTO) 0.3 /CMM (0.1-1.30); NEUTROPHILS % (AUTO) 89.4 % (43.0-81.0); RDW COEFFICIENT OF VARIATION 21.4 (11.5-15.0); RED BLOOD CELL COUNT(AUTO) 4.04 MIL/uL (4.5-6.0); WHITE BLOOD COUNT (AUTO) 7.8 K/uL (4.3-11.0)
[2018-06-16] MEDS: IV 10% DEXTROSE 1,000 ML IV PRN (10:08)
[2018-06-16 10:11] LABS: PLATELET COUNT (AUTO) 46 /CMM (150-450)
[2018-06-16 10:17] LABS: CALCIUM, SERUM 8.1 mg/dL (8.5-10.1); CREATININE 2.3 mg/dL (0.6-1.3); MAGNESIUM 2.2 mg/dL (1.8-2.4); POTASSIUM 3.4 mmol/L (3.5-5.1)
[2018-06-16 10:45] LABS: BAND % (MANUAL) 3 % (0.0-5.0); LYMPHOCYTES % (MANUAL) 7 % (16-48); MONOCYTES % (MANUAL) 4 % (0-11.0); NEUTROPHILS % (MANUAL) 86 (42-76)
--- NOTE | 2018-06-16 11:15 | NUR ---
RN MS NOTES SPOKE WITH DR ALDRIDGE AND STATED HOSPICE STILL PENDING FAMILY IS NOT SURE AND HAS NOT DECIDED ON WHAT TO DO YET, WILL F/U WITH PATIENTS PARENTS AGAIN.
[2018-06-16 12:00] VITALS: BP 108/46
[2018-06-16 16:00] VITALS: BP 111/43
--- NOTE | 2018-06-16 19:20 | NUR ---
CONTROL ELECTRICIAN CLOSING NOTE PATIENT AWAKE AND RESTING IN BED WITH PERIODS OF CONFUSION, VITAL SIGNS STABLE. ON OXYGEN VIA NASAL CANNULA, NO SIGNS OF RESPIRATORY DISTRESS. VISITORS AT BEDSIDE AT THIS TIME. RIGHT UPPER ARM PICC LINE INTACT AND INFUSING D10W AT 30ML/HR. PATIENT CLEANED AND CHANGED FOR COMFORT, ENCOURAGED PATIENT TO EAT AND DRINK FLUIDS. BED LOW AND LOCKED, HEAD OF BED ELEVATED, CALL LIGHT WITHIN REACH. WILL ENDORSE TO ONCOMING NURSE.
--- NOTE | 2018-06-16 19:30 | NUR ---
RN/MS NOTES: RECEIVED PT. IN BED W/ FAMILY AT BEDSIDE. HOB ELEVATED. ALERT X 2-3. W/ O2 @ 4LPM VIA N/C SAT. 97%. W/ THIRD SPACING NOTED. W/ JOHANA PILL LINE W/ DRESSING C/D/I W/ D10 @ 30CC/HR TOLERATING WELL. INCONTINENT OF B/B. WILL CONTINUE TO MONITOR.
[2018-06-16 20:00] VITALS: BP 132/88
[2018-06-17] MEDS: BLOOD SUGAR DIAGNOSTIC 1 EACH STRIP IN SCH ×4 (00:21→18:19)
[2018-06-17] MEDS: MORPHINE SULFATE INJ 2 MG/ML DISP.SYRIN IV PRN ×3 (02:15→20:40)
[2018-06-17 04:00] VITALS: BP 115/43
[2018-06-17] MEDS: SILVER SULFADIAZINE CREAM 25 GM TUBE TP SCH ×2 (06:13→20:37)
[2018-06-17 06:38] LABS: EOSINOPHILS % (AUTO) 0.1 % (0.0-6.0); HEMATOCRIT 31 % (39-51); HEMOGLOBIN 9.9 g/dL (13.5-17.5); LYMPHOCYTES % (AUTO) 9.5 % (20.0-44.0); MEAN CORPUSCULAR HEMOGLOBIN 27 PG (26.0-33.0); MEAN CORPUSCULAR HGB CONC 32 g/dl (31.0-36.0); MEAN CORPUSCULAR VOLUME 84 fL (80-96); MONOCYTES # (AUTO) 0.3 /CMM (0.1-1.30); MONOCYTES % (AUTO) 3.3 % (2.0-12.0); NEUTROPHILS # (AUTO) 8.9 /CMM (1.8-8.9); NEUTROPHILS % (AUTO) 87.1 % (43.0-81.0); RED BLOOD CELL COUNT(AUTO) 3.74 MIL/uL (4.5-6.0); WHITE BLOOD COUNT (AUTO) 10.2 K/uL (4.3-11.0)
[2018-06-17 06:45] LABS: CALCIUM, SERUM 7.9 mg/dL (8.5-10.1); CREATININE 2.4 mg/dL (0.6-1.3); MAGNESIUM 2.2 mg/dL (1.8-2.4); PHOSPHORUS 4.5 mg/dL (2.5-4.9); POTASSIUM 3.8 mmol/L (3.5-5.1)
--- NOTE | 2018-06-17 06:53 | NUR ---
RN/MS NOTES: LAB CALLED CRITICAL PLATELETS IS TRENDING UP FROM 46 ON 06/16/18 TO 47 TODAY. CHARGE NURSE MADE AWARE.
[2018-06-17 07:07] LABS: PLATELET COUNT (AUTO) 47 /CMM (150-450)
--- NOTE | 2018-06-17 07:16 | NUR ---
RN/MS NOTES: REPORT GIVEN TO AM NURSE FOR CATIE.
--- NOTE | 2018-06-17 07:20 | NUR ---
MS RN OPENING NOTES: RECEIVED REPORT FROM PM NURSE. IN BED SLEEPING EASILY AROUSABLE.AXOX2. HOB ELEVATED. W/ O2 @ 4LPM VIA N/C SAT. 99%. THIRD SPACING NOTED. JOHANA PICC LINE DRESSING INTACT W/ D10 @ 30CC/HR TOLERATING WELL.BED IS LOCKED AND IN LOW POSITION.SRX3.CALL LIGHT IN REACH. WILL CONTINUE TO MONITOR.
[2018-06-17 08:00] VITALS: BP 109/43
[2018-06-17] MEDS: GLUCERNA SHAKE 237 ML CAN PO SCH ×2 (08:00→16:19)
[2018-06-17] MEDS: PANTOPRAZOLE 40 MG VIAL IV SCH (08:10)
[2018-06-17] MEDS: MICAFUNGIN SODIUM 100 MG in IV NS 0.9% 100 ML IV SCH (08:10)
[2018-06-17] MEDS: Z GUARD REMEDY 2 OZ OINT TP SCH ×2 (08:13→20:37)
[2018-06-17] MEDS: CADEXOMER IODINE 40 GM TUBE TP SCH (08:13)
[2018-06-17] MEDS ORDERED: VANCOMYCIN 0.75 GM in IV NS 0.9% 250 ML IV SCH (09:00)
[2018-06-17 10:28] LABS: BAND % (MANUAL) 1 % (0.0-5.0); LYMPHOCYTES % (MANUAL) 3 % (16-48); MONOCYTES % (MANUAL) 1 % (0-11.0); NEUTROPHILS % (MANUAL) 95 (42-76)
--- NOTE | 2018-06-17 13:25 | NUR ---
RN NOTES SEEN BT WITH NEW ORDER FOR LABS TOMORROW.MADE AWARE ABOUT LABS AND SCD OK .NO OTHER DVT PROPHYLAXIS AT THIS TIME.CONTRAINDICATED TO PATIENT.WILL CONTINUE TO MONITOR.
[2018-06-17 16:00] VITALS: BP 103/39
--- NOTE | 2018-06-17 19:30 | NUR ---
RN/MS NOTES: RECEIVED PT. IN BED W/ FAMILY AT BEDSIDE. HOB ELEVATED. ALERT X 2-3. W/ O2 @ 4LPM VIA N/C SAT. 97%. W/ THIRD SPACING NOTED. W/ JOHANA PILL LINE W/ DRESSING C/D/I W/ D10 @ 30CC/HR TOLERATING WELL. DRESSING DONE PER MD. ORDER. INCONTINENT OF B/B. WILL CONTINUE TO MONITOR.
--- NOTE | 2018-06-17 19:35 | NUR ---
MS RN CLOSING NOTES: PATIENT IN BED AWAKE.AXOX2. HOB ELEVATED. W/ O2 @ 4LPM VIA N/C SAT. 99%. THIRD SPACING NOTED. JOHANA PICC LINE DRESSING INTACT W/ D10 @ 30CC/HR TOLERATING WELL.SPOKE TO MOM ,FAMILY WAS AT BEDSIDE ,STILL MAKING DECISION REGARDING CODE STATUS AND FOLLOW UP.BED IS LOCKED AND IN LOW POSITION.SRX3.CALL LIGHT IN REACH. WILL CONTINUE TO MONITOR.
[2018-06-17 21:00] VITALS: BP 96/41
[2018-06-17] MEDS: IV 10% DEXTROSE 1,000 ML IV PRN (21:53)
[2018-06-18] MEDS: BLOOD SUGAR DIAGNOSTIC 1 EACH STRIP IN SCH ×4 (00:26→17:54)
[2018-06-18] MEDS: MORPHINE SULFATE INJ 2 MG/ML DISP.SYRIN IV PRN ×2 (04:37→21:21)
[2018-06-18 05:00] VITALS: BP 105/44
[2018-06-18] MEDS: SILVER SULFADIAZINE CREAM 25 GM TUBE TP SCH ×2 (06:24→21:20)
[2018-06-18 06:58] LABS: CREATININE 2.4 mg/dL (0.6-1.3); MAGNESIUM 2.3 mg/dL (1.8-2.4); PHOSPHORUS 4.6 mg/dL (2.5-4.9); POTASSIUM 3.7 mmol/L (3.5-5.1)
--- NOTE | 2018-06-18 07:18 | NUR ---
RN/MS NOTES: REPORT GIVEN TO AM NURSE FOR CATIE.
--- NOTE | 2018-06-18 07:30 | NUR ---
MS RN NOTES: RECEIVED PT ON BED ASLEEP WITH NO APPARENT DISTRESS NOTED. NO FACIAL GRIMACING OR ANY SIGNS OF PAIN NOTED. ON O2 2LPM NC, BREATHING EVEN AND UNLABORED WITH NORMAL RESPIRATIONS. RIGHT UPPER ARM PICC LINE INTACT AND PATENT, WITH IVF D10 RUNNING AT 30ML/HR, INFUSING WELL. KEPT CLEAN, DRY AND COMFORTABLE. SAFETY AND FALL PRECAUTIONS OBSERVED AND MAINTAINED. WILL CONTINUE TO MONITOR PT.
[2018-06-18 08:00] VITALS: BP 104/47
[2018-06-18] MEDS: MICAFUNGIN SODIUM 100 MG in IV NS 0.9% 100 ML IV SCH (08:04)
[2018-06-18] MEDS: GLUCERNA SHAKE 237 ML CAN PO SCH ×2 (08:04→17:48)
[2018-06-18] MEDS: PANTOPRAZOLE 40 MG VIAL IV SCH (08:10)
[2018-06-18] MEDS: Z GUARD REMEDY 2 OZ OINT TP SCH ×2 (08:11→21:22)
[2018-06-18] MEDS: CADEXOMER IODINE 40 GM TUBE TP SCH (08:12)
[2018-06-18 16:00] VITALS: BP 103/53
--- NOTE | 2018-06-18 16:00 | NUR ---
MS RN NOTES: PT REFUSED WOUND TREATMENT ON LEFT ARM, PT UNABLE TO TOLERATE PROCEDURE. EXPLAINED RISKS AND BENEFITS BUT PT STILL REFUSED.
--- NOTE | 2018-06-18 19:26 | NUR ---
MS RN NOTES: NO CHANGES NOTED THROUGHOUT THE SHIFT. NO APPARENT DISTRESS NOTED. NO FACIAL GRIMACING OR ANY SIGNS OF PAIN NOTED. NO SOB. RIGHT UPPER ARM INTACT AND PATENT. KEPT CLEAN, DRY AND COMFORTABLE. WILL ENDORSE TO PROTOTYPE SEWER FOR CONTINUITY OF CARE.
--- NOTE | 2018-06-18 19:30 | NUR ---
RN/MS NOTES: RECEIVED PT. IN BED W/ HOB ELEVATED. ALERT X 2-3 W/ PERIODS OF CONFUSION AND DISORIENTATION. W/ O2 @ 2LPM VIA N/C SAT. 99%. NOTED ANASARCA ASCITES. W/ JOHANA PICC LINE C/D/I W/ NO S/S OF INFECTION/INFILTRATION NOTED. W/ D10 @ 30CC/HR . NO FACIAL GRIMACES OR MOANING NOTED. CALL LIGHT W/ REACH. INCONTINENT CARE RENDERED. WILL CONTINUE TO MONITOR.
[2018-06-18 21:00] VITALS: BP 105/43
[2018-06-18] MEDS: DOXYCYCLINE HYCLATE (100 MG) 100 MG TABLET PO SCH (21:20)
[2018-06-19] VITALS (7 sets, daily range): BP systolic 98–116; BP diastolic 40–71
[2018-06-19] MEDS: BLOOD SUGAR DIAGNOSTIC 1 EACH STRIP IN SCH ×4 (00:28→17:46)
--- NOTE | 2018-06-19 01:38 | NUR ---
RN/MS NOTES: PT. REFUSED DRESSING CHANGE. EDUCATED ON THE IMPORTANCE BUT STILL SAID NO. WILL TRY AGAIN LATER.
--- NOTE | 2018-06-19 03:54 | NUR ---
RN/MS NOTES: TRIED TO CONVINCE PT. TO DO THE DRESSING CHANGE. PT. REFUSED. EDUCATED ON THE IMPORTANCE BUT PT. INSISTED AND SAID NO.
--- NOTE | 2018-06-19 06:42 | NUR ---
RN/MS NOTES: WILL ENDORSE AM SHIFT TO F/U.
[2018-06-19] MEDS: SILVER SULFADIAZINE CREAM 25 GM TUBE TP SCH ×2 (06:49→19:02)
[2018-06-19] MEDS: IV 10% DEXTROSE 1,000 ML IV PRN (06:51)
[2018-06-19 06:52] LABS: CREATININE 2.6 mg/dL (0.6-1.3); POTASSIUM 3.7 mmol/L (3.5-5.1)
--- NOTE | 2018-06-19 07:10 | NUR ---
MS/RN INITIAL NOTES RECEIVED PT IN BED, A/O X2. NO C/O PAIN AT THIS TIME. ON 2LPM O2 VIA NC, SATURATING WELL, NOTED ANASARCA ASCITES. WITH ONGOING IVF D10 @ 30 ML/HR INFUSING WELL ON JOHANA PICC LINE. JOHANA PICC INTACT AND PATENT, NO SIGNS OF INFECTION NOTED. SAFETY MEASURES IN PLACED. CALL LIGHT WITHIN REACH WILL CONT TO MONITOR PER PM SHIFT NURSE ENDORSEMENT, PT REFUSED WOUND TREATMENT, WILL OFFER AGAIN
--- NOTE | 2018-06-19 07:37 | NUR ---
RN/MS NOTES: REPORT GIVEN TO NEXT SHIFT NURSE FOR CATIE.
[2018-06-19] MEDS: GLUCERNA SHAKE 237 ML CAN PO SCH ×2 (07:41→17:40)
[2018-06-19] MEDS: MICAFUNGIN SODIUM 100 MG in IV NS 0.9% 100 ML IV SCH (07:42)
[2018-06-19] MEDS: PANTOPRAZOLE 40 MG VIAL IV SCH (09:01)
[2018-06-19] MEDS: DOXYCYCLINE HYCLATE (100 MG) 100 MG TABLET PO SCH ×2 (09:01→20:35)
[2018-06-19] MEDS: Z GUARD REMEDY 2 OZ OINT TP SCH ×2 (09:02→20:36)
[2018-06-19] MEDS: CADEXOMER IODINE 40 GM TUBE TP SCH (09:03)
[2018-06-19] MEDS: MORPHINE SULFATE INJ 2 MG/ML DISP.SYRIN IV PRN (10:16)
--- NOTE | 2018-06-19 19:44 | NUR ---
RN OPENING NOTES RECEIVED REPORT FROM STEPHANIE ORTIZ. PATIENT A/A/O X2-3 W/ PERIODS OF CONFUSION BUT ABLE TO MAKE NEEDS KNOWN & STATE PAIN. BREATHING EVEN & UNLABORED, TOLERATING O2 @ 2LPM. DENIES ANY SOB OR DIFFICULTY BREATHING. PULSES PRESENT & BOUNDING. RIGHT UPPER ARM PICC LINE INTACT & PATENT W/ DRESSING CDI & IVF D10 INFUSING WELL @ 30 ML/HR. NO SIGNS OF INFILTRATION NOTED. C/O PAIN 7 OUT OF 10 ON PAIN SCALE. INTERVENTION TO BE PROVIDED. SAFETY MEASURES IN PLACE W/ BED ALARM ON & CALL LIGHT WITHIN REACH. INSTRUCTED TO CALL FOR ASSISTANCE. WILL CONTINUE TO MONITOR.
--- NOTE | 2018-06-19 19:47 | NUR ---
MS/RN CLOSING NOTES PT IN STABLE CONDITION. NO ACUTE DISTRESS NOTED THROUGHOUT SHIFT. SAFETY MEASURES AND ASPIRATION PRECAUTION OBSERVED AT ALL TIMES. ALL NEEDS ANTICIPATED. ENDORSED TO PM SHIFT NURSE FOR CATIE
[2018-06-19] MEDS ORDERED: SODIUM BICARBONATE SYR 50 MEQ/50 ML DISP.SYRIN ONE (23:09)
--- NOTE | 2018-06-19 23:15 | NUR ---
ICU/RN- PT. GOING IN AND OUT OF ATRIAL FLUTTER TO SRCody DNP HERE W/ ORDERS TO START PT. ON AMIODARONE DRIP PER PROTOCOL.
--- NOTE | 2018-06-19 23:22 | NUR ---
ICU/RN-RECEIVED PT. FROM MS1 VIA BED PER ACLS PROTOCOL S/P CODE BLUE SECONDARY TO CARDIOPULMONARY ARREST. PT. UNRESPONSIVE TO ANY FORM OF STIMULI, PUPILS ARE 4MM EACH, SLUGGISH, NO SULLIVAN, W/ ETT 7.5 AT 26CM AT THE LIP,ON CONTINUOUS BAGGING BY RT AND IMMEDIATELY HOOKED UP TO VENT W/ THE FOLLOWING SETTINGS:AC-30, VT-500,FIO2-100%,PEEP +5.,SATS.-97%. EKG ATRIAL FLUTTER W/ HR-141, BP-116/55, ON LEVOPHED DRIP AT 20MCG/MIN. , NGT CLAMPED. WILL SPRING SALVAGE WORKER TO SUCTION.PT. HAS SEVERAL SKIN ISSUES. REFER TO SKIN ASSESSMENT FLOW SHEET FOR DETAILS AND WOUND PHOTO. WILL CONTINUE TO MONITOR PER PROTOCOL. TEMPT. 96/F. WARM BLANKETS APPLIED.
--- NOTE | 2018-06-19 23:23 | NUR ---
PT ORALLY INTUBATED WITH 7.5 ETT SECURED @ 26 CM AT THE LIP . VENT PLUGGED INTO RED OUTLET , VENT ALARMS SET AND AUDIBLE. CORPORATE PLANNING MANAGER CUFF DONE. BILATERAL BS NOTED. SUCTIONED MODERATE AMOUNT OF YELLOW THICK SECRETIONS. AMBU BAG AT BEDSIDE. ABG DONE. WILL CONTINUE TO MONITOR IF ANY CHANGES.
[2018-06-19 23:37] LABS: BASOPHILS # (AUTO) 0.1 /CMM (0.0-0.2); BASOPHILS % (AUTO) 1.6 % (0.0-2.0); EOSINOPHILS % (AUTO) 0.3 % (0.0-6.0); HEMATOCRIT 31 % (39-51); HEMOGLOBIN 9.5 g/dL (13.5-17.5); LYMPHOCYTES # (AUTO) 0.8 /CMM (0.8-4.8); LYMPHOCYTES % (AUTO) 10.3 % (20.0-44.0); MEAN CORPUSCULAR HEMOGLOBIN 26 PG (26.0-33.0); MEAN CORPUSCULAR HGB CONC 31 g/dl (31.0-36.0); MEAN CORPUSCULAR VOLUME 85 fL (80-96); MONOCYTES # (AUTO) 0.3 /CMM (0.1-1.30); MONOCYTES % (AUTO) 3.2 % (2.0-12.0); NEUTROPHILS # (AUTO) 6.8 /CMM (1.8-8.9); NEUTROPHILS % (AUTO) 84.6 % (43.0-81.0); RED BLOOD CELL COUNT(AUTO) 3.66 MIL/uL (4.5-6.0)
[2018-06-19 23:47] LABS: PLATELET COUNT (AUTO) 41 /CMM (150-450)
[2018-06-19 23:48] LABS: CALCIUM, SERUM 7.2 mg/dL (8.5-10.1); CARBON DIOXIDE 21 mmol/L (21-32); CHLORIDE 101 mmol/L (98-107); CREATININE 2.9 mg/dL (0.6-1.3); GLUCOSE 125 mg/dL (74-106); POTASSIUM 3.8 mmol/L (3.5-5.1); SODIUM SERUM 138 mmol/L (136-145); UREA NITROGEN, BLOOD 73 mg/dL (7-18)
[2018-06-19 23:49] LABS: SERUM AMMONIA 115 umol/L (11-32)
--- NOTE | 2018-06-19 23:49 | NUR ---
RN NOTES PATIENT NOTED UNRESPONSIVE W/ NO PULSE. CPR INITIATED & CODE BLUE CALLED @ 5837, PATIENT IS FULL CODE. Addendum: 06/20/18 at [address]IS RN DR VINCENT KIDD INTUBATED AND PT TRANSFERRED TO ICU @ 2687.
[2018-06-19 23:53] LABS: ALANINE AMINOTRANSFERASE 10 U/L (12-78); ALBUMIN 1.5 g/dL (3.4-5.0); ALKALINE PHOSPHATASE 70 U/L (46-116); ASPARTATE AMINOTRANSFERASE 34 U/L (15-37); BILIRUBIN,TOTAL 1.1 mg/dL (0.2-1.0); MAGNESIUM 2.4 mg/dL (1.8-2.4); TOTAL PROTEIN, SERUM 5.5 g/dL (6.4-8.2)
[2018-06-20] VITALS (24 sets, daily range): BP systolic 27–115; BP diastolic 9–63
[2018-06-20] MEDS: BLOOD SUGAR DIAGNOSTIC 1 EACH STRIP IN SCH ×2 (00:19→06:20)
[2018-06-20 00:39] LABS: LYMPHOCYTES % (MANUAL) 14 % (16-48); MONOCYTES % (MANUAL) 3 % (0-11.0); NEUTROPHILS % (MANUAL) 83 (42-76)
--- NOTE | 2018-06-20 00:55 | NUR ---
ICU/RN- PT. CONTINUE TO BE IN ATRIAL FLUTTER W/ HR-155, Cody KIDD DNP HERE AND CARDIOVERTED PT. W/ 120 JOULES. THEN PT. CONVERTED TO SR W/ PACS.
--- NOTE | 2018-06-20 00:57 | NUR ---
VENT SETTINGS CHANGED TO AC 26, FIO2 60% PER DR. KIDD. RN BINH NOTIFIED.
[2018-06-20] MEDS ORDERED: AMIODARONE 900 MG in IV D5W 482 ML IV PRN (01:00)
[2018-06-20] MEDS ORDERED: VANCOMYCIN 1 GM in IV D5W 250 ML IV ONE (01:00)
[2018-06-20] MEDS ORDERED: PIPERACILLIN /TAZOBACTAM 2.25 G in IV D5W 50 ML IV SCH (01:00)
[2018-06-20] MEDS ORDERED: IV NS 0.9% 1,000 ML BAG IV ONE (01:00)
[2018-06-20] MEDS ORDERED: AMIODARONE 150 MG in IV D5W 100 ML IV ONE (01:00)
[2018-06-20] MEDS ORDERED: LACTULOSE 10 G/15 ML UDC (PYXIS) PO PRN (01:00)
--- NOTE | 2018-06-20 01:00 | NUR ---
ICU/RN- FAMILY HERE VISITING PT. ABLE TO SPEAK TO HENRRY KIDD REGARDING PT. STATUS. WILL CONTINUE TO MONITOR PER PROTOCOL.
[2018-06-20 01:02] LABS: ABG BASE EXCESS -10.1 mmol/L; ABG OXYGEN SATURATION 98.8 % (92.0-98.5); ABG PCO2 22.2 mmHg (35.0-45.0); ABG PH 7.388 (7.350-7.450); ABG PO2 187.5 mmHg (75.0-100.0); AaDO2 503.3 mmHg; COHb 0.2 % (0.5-1.5); MetHb 0.6 % (0.0-1.5); PEEP,BG 5 cm H2O; SITE, ABG Left Radial; VT, ABG 500 mL
[2018-06-20] MEDS ORDERED: AMIODARONE 150 MG/3 ML VIAL IV ONE ×2 (01:09→01:10)
--- NOTE | 2018-06-20 01:30 | NUR ---
PACU/RN- PT. REMAINS CRITICALLY ILL, FULL CODE, REPORT GIVEN TO ANGEL ALEGRIA.
--- NOTE | 2018-06-20 01:30 | NUR ---
ICU/RN RECEIVED REPORT FORM BINH RN,PT ON VENT VIA ORAL ETT ON 60% FI02 SATURATION OF 88=89%INCREASED TO 100%.ABG DONE AT 0157.RESULT PHONED TO VINCENT KIDD DNP,ORDERS RECEIVED AND CARRIED OUT
[2018-06-20] MEDS: IV 10% DEXTROSE 1,000 ML IV PRN (01:40)
[2018-06-20] MEDS: NOREPINEPHRINE 8 MG in IV D5W 500 ML IV PRN ×2 (01:52→04:53)
[2018-06-20] MEDS ORDERED: PIPERACILLIN /TAZOBACTAM 2.25 G in IV D5W 50 ML IV ONE (02:00)
--- NOTE | 2018-06-20 02:00 | NUR ---
ICU/RN 2LITERS NS GIVEN ORDERED.AND NS HUNG TKO.PT REMAINS UNRESPONSIVE TO VERBAL AND TACTILE STIMULI.PT
[2018-06-20 02:02] LABS: ABG BASE EXCESS -14.2 mmol/L; ABG OXYGEN SATURATION 91.3 % (92.0-98.5); ABG PCO2 36.5 mmHg (35.0-45.0); ABG PH 7.177 (7.350-7.450); ABG PO2 75.1 mmHg (75.0-100.0); AaDO2 601.4 mmHg; COHb 0.3 % (0.5-1.5); MetHb 0.4 % (0.0-1.5); O2Hb 90.7 % (94.0-97.0); PEEP,BG 5 cm H2O; SITE, ABG Left Radial; VT, ABG 500 mL
[2018-06-20] MEDS ORDERED: PIPERACILLIN /TAZOBACTAM 2.25 G VIAL IV ONE (02:12)
[2018-06-20 02:15] LABS: BILIRUBIN,DIRECT 1.2 mg/dL (0.0-0.2)
[2018-06-20] MEDS ORDERED: LACTULOSE 10 G/15 ML UDC (PYXIS) PO ONE (02:30)
[2018-06-20] MEDS ORDERED: LACTULOSE 10 G/15 ML UDC (PYXIS) ONE (02:58)
[2018-06-20] MEDS ORDERED: DEXAMETHASONE SOD PHOSPHATE 10 MG/ML VIAL IV STA (03:35)
--- NOTE | 2018-06-20 03:40 | NUR ---
TOOK OFF PEEP DUE TO LOW BP PER DR KIDD. ANGEL PURCELL NOTIFIED.
[2018-06-20] MEDS ORDERED: PHENYLEPHRINE 40 MG in IV D5W 250 ML IV PRN (04:00)
[2018-06-20] MEDS ORDERED: PHENYLEPHRINE 10 MG/ML VIAL ONE (04:01)
[2018-06-20 04:41] LABS: EOSINOPHILS % (AUTO) 0.2 % (0.0-6.0); HEMATOCRIT 37 % (39-51); HEMOGLOBIN 11.3 g/dL (13.5-17.5); LYMPHOCYTES # (AUTO) 0.3 /CMM (0.8-4.8); LYMPHOCYTES % (AUTO) 3.8 % (20.0-44.0); MEAN CORPUSCULAR HEMOGLOBIN 26 PG (26.0-33.0); MEAN CORPUSCULAR HGB CONC 31 g/dl (31.0-36.0); MEAN CORPUSCULAR VOLUME 85 fL (80-96); MONOCYTES # (AUTO) 0.2 /CMM (0.1-1.30); MONOCYTES % (AUTO) 2.5 % (2.0-12.0); NEUTROPHILS # (AUTO) 7.7 /CMM (1.8-8.9); NEUTROPHILS % (AUTO) 93.5 % (43.0-81.0); PLATELET COUNT (AUTO) 62 /CMM (150-450); RDW COEFFICIENT OF VARIATION 21.7 (11.5-15.0); RED BLOOD CELL COUNT(AUTO) 4.29 MIL/uL (4.5-6.0); WHITE BLOOD COUNT (AUTO) 8.2 K/uL (4.3-11.0)
[2018-06-20] MEDS ORDERED: NOREPINEPHRINE 4 MG/4 ML AMPUL IV ONE ×2 (04:49→07:00)
[2018-06-20 05:10] LABS: CALCIUM, SERUM 7.1 mg/dL (8.5-10.1); CREATININE 2.8 mg/dL (0.6-1.3); MAGNESIUM 2.2 mg/dL (1.8-2.4); PHOSPHORUS 6.2 mg/dL (2.5-4.9)
[2018-06-20 05:48] LABS: LYMPHOCYTES % (MANUAL) 7 % (16-48); MONOCYTES % (MANUAL) 1 % (0-11.0); NEUTROPHILS % (MANUAL) 92 (42-76)
--- NOTE | 2018-06-20 06:30 | NUR ---
ICU/RN PT W/ WIDE QRS ON MONITOR,NO PALPABLE PULSES.CODE BLUE CALLED.SEE CODE BLUE SHEET FOR EVENTS.VINCENT KIDD INSERTED A-LINE VIA LT. FEMORAL W/SBP OF 155/58 NOT CORRELATING W/ NIBP.NIBP TURNED OFF PER BERNABE'S MNP REQUEST.
[2018-06-20] MEDS ORDERED: EPINEPHRINE (1:10,000) SYRINGE 1 MG/10 ML DISP.SYRIN IVP ONE ×2 (07:00)
[2018-06-20] MEDS: SILVER SULFADIAZINE CREAM 25 GM TUBE TP SCH (07:00)
[2018-06-20] MEDS ORDERED: ATROPINE SULFATE 1 MG/10 ML DISP.SYRIN IV ONE ×2 (07:00)
[2018-06-20] MEDS ORDERED: SODIUM BICARBONATE SYR 50 MEQ/50 ML DISP.SYRIN IV ONE ×2 (07:00)
--- NOTE | 2018-06-20 07:00 | NUR ---
ICU/RN REPOR AND CARE OF PT GIVEN TO BRIDGETT ORTIZ.
[2018-06-20] MEDS: MICAFUNGIN SODIUM 100 MG in IV NS 0.9% 100 ML IV SCH (08:00)
[2018-06-20] MEDS: GLUCERNA SHAKE 237 ML CAN PO SCH (08:00)
--- NOTE | 2018-06-20 08:10 | NUR ---
INITIAL CLINICAL PHYSICIAN ASSISTANT NOTE RCVD PT UNRESPONSIVE, WITH EYES OPEN, CODE BLUE FOR [facility] CALLED AT CHANGE OF SHIFT. SLUGGISH BILATERAL PUPIL REACTION. INTUBATED AC MODE FIO2 100%. OG-TUBE TO LOW CONTINUOUS SUCTION WITH BROWN COLORED DRAINAGE OBSERVED IN TUBING AND CANISTER. URIOSTEGUI WITH MINIMAL YELLOW URINARY OUTPUT IN TUBING. MULTIPLE WOUNDS PRESENT ON ADMISSION. JOHANA PICC AND LEFT FEMORAL ARTERIAL LINE WITH PRESSURE DRESSING IN PLACE. IVF, LEVO, LUDIVINA AND AMIO INFUSING ORDERED. PT'S FAMILY AT BEDSIDE UPDATED ON PT'S CONDITION BY DR. KIDD. PT'S CODE STATUS CHANGED TO DNR PER FAMILY'S REQUEST. PAULINA MARTINEZ AWARE. PT WENT INTO [facility] AFTER CODE STATUS WAS CHANGED. PT WAS PRONOUNCED AT 0802 BY SHIVA, RN AND ZAC RN AT BEDSIDE. NO PULSE PRESENT TO PALPATION/DOPPLER. FAMILY NOTIFIED. CURRENTLY FAMILY AT BEDSIDE VISITING WITH PT.
[2018-06-20] MEDS: CADEXOMER IODINE 40 GM TUBE TP SCH (08:23)
[2018-06-20] MEDS: PANTOPRAZOLE 40 MG VIAL IV SCH (08:23)
[2018-06-20] MEDS: DOXYCYCLINE HYCLATE (100 MG) 100 MG TABLET PO SCH (08:23)
[2018-06-20] MEDS: Z GUARD REMEDY 2 OZ OINT TP SCH (08:23)
[2018-06-20] MEDS ORDERED: VANCOMYCIN 0.75 GM in IV NS 0.9% 250 ML IV SCH (09:00)
--- NOTE | 2018-06-20 09:32 | NUR ---
[employer] NOTE [facility] CALLED SPOKE WITH IS[facility] CASE # [id number]. RCVD CALL BACK FROM [facility] SPOKE WITH [facility] WHO STATES THAT BODY CAN BE RELEASED.
--- NOTE | 2018-06-20 10:31 | NUR ---
BODY TRANSPORTED TO [facility] PER HOSPITAL PROTOCOL. MEDICAL RECORDS TAKEN TO NURSING OFFICE AND GIVEN TO ADMITTING STAFF.
== END 2018-06-20 08:03 | disposition expired | DRG 951 ==
LOC: ER 10:05 → ICU 11:27 → TELE-TD 06-09 18:35 → TELE1 06-10 08:25 → MEDSG1 06-13 08:32 → ICU 06-19 23:19
PROC: 0JBP0ZZ Excision of Left Lower Leg Subcutaneous Tissue and Fascia, Open Approach (ICD-10-PCS; principal; 2018-06-09)
PROC: 0QBR0ZZ Excision of Left Toe Phalanx, Open Approach (ICD-10-PCS; principal; 2018-06-09)
PROC: 02HV33Z Insertion of Infusion Device into Superior Vena Cava, Percutaneous Approach (ICD-10-PCS; principal; 2018-06-09)
PROC: 0W9B3ZZ Drainage of Left Pleural Cavity, Percutaneous Approach (ICD-10-PCS; principal; 2018-06-09)
PROC: 0W993ZZ Drainage of Right Pleural Cavity, Percutaneous Approach (ICD-10-PCS; principal; 2018-06-09)
PROC: B548ZZA Ultrasonography of Superior Vena Cava, Guidance (ICD-10-PCS; principal; 2018-06-09)
PROC: 30233R1 Transfusion of Nonautologous Platelets into Peripheral Vein, Percutaneous Approach (ICD-10-PCS; 2018-06-10)
PROC: 5A12012 Performance of Cardiac Output, Single, Manual (ICD-10-PCS; 2018-06-19)
PROC: 0BH18EZ Insertion of Endotracheal Airway into Trachea, Via Natural or Artificial Opening Endoscopic (ICD-10-PCS; 2018-06-20)
PROC: 5A1935Z Respiratory Ventilation, Less than 24 Consecutive Hours (ICD-10-PCS; 2018-06-20)
PROC: 04HL33Z Insertion of Infusion Device into Left Femoral Artery, Percutaneous Approach (ICD-10-PCS; 2018-06-20)
DX: J96.01 Acute respiratory failure with hypoxia (principal); N17.0 Acute kidney failure with tubular necrosis; K72.00 Acute and subacute hepatic failure without coma; I33.0 Acute and subacute infective endocarditis; J69.0 Pneumonitis due to inhalation of food and vomit; G93.1 Anoxic brain damage, not elsewhere classified; G93.40 Encephalopathy, unspecified; J15.9 Unspecified bacterial pneumonia; L89.313 Pressure ulcer of right buttock, stage 3; E87.4 Mixed disorder of acid-base balance; L89.323 Pressure ulcer of left buttock, stage 3; J90 Pleural effusion, not elsewhere classified; D68.59 Other primary thrombophilia; E11.22 Type 2 diabetes mellitus with diabetic chronic kidney disease; E11.621 Type 2 diabetes mellitus with foot ulcer; N18.9 Chronic kidney disease, unspecified; L97.524 Non-pressure chronic ulcer of other part of left foot with necrosis of bone; I12.9 Hypertensive chronic kidney disease with stage 1 through stage 4 chronic kidney disease, or unspecified chronic kidney disease; F32.9 Major depressive disorder, single episode, unspecified; L03.115 Cellulitis of right lower limb; L03.114 Cellulitis of left upper limb; Z79.4 Long term (current) use of insulin; Z79.899 Other long term (current) drug therapy; D69.6 Thrombocytopenia, unspecified; E11.42 Type 2 diabetes mellitus with diabetic polyneuropathy; E11.51 Type 2 diabetes mellitus with diabetic peripheral angiopathy without gangrene; E11.649 Type 2 diabetes mellitus with hypoglycemia without coma; E11.69 Type 2 diabetes mellitus with other specified complication; E11.65 Type 2 diabetes mellitus with hyperglycemia; E87.1 Hypo-osmolality and hyponatremia; D63.8 Anemia in other chronic diseases classified elsewhere; I25.10 Atherosclerotic heart disease of native coronary artery without angina pectoris; I48.92 Unspecified atrial flutter; I48.91 Unspecified atrial fibrillation; I27.20 Pulmonary hypertension, unspecified; N40.0 Benign prostatic hyperplasia without lower urinary tract symptoms; Z89.511 Acquired absence of right leg below knee; Z91.19 Patient's noncompliance with other medical treatment and regimen; K74.60 Unspecified cirrhosis of liver; R18.8 Other ascites; M86.9 Osteomyelitis, unspecified; K70.9 Alcoholic liver disease, unspecified; J96.02 Acute respiratory failure with hypercapnia; K82.8 Other specified diseases of gallbladder; K76.6 Portal hypertension; N50.89 Other specified disorders of the male genital organs; M85.80 Other specified disorders of bone density and structure, unspecified site; I08.0 Rheumatic disorders of both mitral and aortic valves; F17.210 Nicotine dependence, cigarettes, uncomplicated; F10.10 Alcohol abuse, uncomplicated; I87.2 Venous insufficiency (chronic) (peripheral); E87.70 Fluid overload, unspecified; I31.3 Pericardial effusion (noninflammatory)
CPT/HCPCS: 31720; 36415; 36569; 36600; 71045-TC; 76700-TC; 76942-TC; 80048-TC; 80053-TC; 80061-TC; 80076-TC; 80202-TC; 81000-TC; 82140-TC; 82150-TC; 82248-TC; 82570-TC; 82803-TC; 82962-TC; 83605-TC; 83690-TC; 83735-TC; 83880; 84100-TC; 84134-TC; 84155-TC; 84300-TC; 84443-TC; 84484-TC; 85025-TC; 85730-TC; 86850-TC; 87040-TC; 87070-TC; 87075-TC; 87081-TC; 87102-TC; 88312-TC; 88342; 89051-TC; 93307-TC; 94002-TC; 94003-TC; A4216; A4217; A4606; A6253; A6402; A6403; A6407; C1751; C9113; J0171; J0282; J0461; J1100; J1650; J1815; J1940; J2248; J2270; J2370; J2543; J3370; J3490; J7030; J7040; J7050; J7060; P9016-BL; P9034-BL; P9047; Z7610